=== PATIENT | female | born 1945 | race Caucasian/White ===

== ENCOUNTER 2022-11-09 11:08 | Outpatient (CLI) | payer OTHER, SELFPAY | END 2022-11-09 11:09 | disposition home or self-care (01) | PROVIDERS: PCP Physician Assistant Medical; Visit Provider Internal Medicine Gastroenterology | DX: R10.13 Epigastric pain (principal); K31.89 Other diseases of stomach and duodenum; K44.9 Diaphragmatic hernia without obstruction or gangrene; R19.7 Diarrhea, unspecified; R11.15 Cyclical vomiting syndrome unrelated to migraine; R19.8 Other specified symptoms and signs involving the digestive system and abdomen | CPT/HCPCS: 43239; 88305; 88342; J2250; J3010 ==

== ENCOUNTER 2023-04-27 09:03 | Outpatient (CLI) | payer OTHER, SELFPAY | END 2023-04-27 09:04 | disposition home or self-care (01) | LOC: INJ CL 09:05 | PROVIDERS: PCP Student in an Organized Health Care Education/Training Program; Visit Provider Family Medicine | DX: M54.16 Radiculopathy, lumbar region (principal); M51.36 Other intervertebral disc degeneration, lumbar region | CPT/HCPCS: 62323; J0702; Q9966 ==

== ENCOUNTER 2023-08-31 12:33 | Outpatient (CLI) | payer OTHER, SELFPAY | END 2023-08-31 12:34 | disposition home or self-care (01) | LOC: INJ CL 12:34 | PROVIDERS: PCP Student in an Organized Health Care Education/Training Program; Visit Provider Family Medicine | DX: M51.36 Other intervertebral disc degeneration, lumbar region (principal); M54.16 Radiculopathy, lumbar region | CPT/HCPCS: 62323; J0702; Q9966 ==